=== PATIENT | female | born 1965 | race Caucasian/White ===

== ENCOUNTER 2018-05-22 02:47 | Inpatient (IN) | payer OTHER ==
[~2018-05-22] VITALS: Ht 147.3 cm; Wt 74.6 kg
[~2018-05-22 02:47] MED LIST: AVAPRO150 M1 PO; CELEBREX200 M1 PO; CLARITIN10 M1 PO; FLONASE ALLERG9.9 ML NASB; MULTI-VITAMIN1 EACH PO; PROAIR HFA8.5 GM INH; SYMBICORT 16010.2 GM INH; TRAMADOL HCL50 M1 PO; VYTORIN 10-201 EACH PO; XANAX0.25 M1 PO
--- NOTE | 2018-05-22 10:13 | Admission Core Measures ---
Acute Coronary Syndrome (CM) ACS Core Measures Acute Coronary Syndrome Diagnosis No Congestive Heart Failure (NEW) CHF Core Measures Congestive Heart Failure Diagnosis No Cerebrovascular Accident CVA Core Measures CVA/TIA Diagnosis No Venous Thromboembolism VTE Core Avila (View Protocol) VTE Risk Factors Surgery No Mechanical VTE Prophylaxis d/t N/A MechProphylax Ordered No VTE Pharm Prophylaxis d/t NA PharmProphylax ordered Problem List As ranked by this Provider includes Assessment & Plan 1. Unilateral primary osteoarthritis, left hip HOME MEDS Home Med List Albuterol Sulfate (Proair Hfa) 90 MCG HFA.AER.AD 2 PUF INH PRN ASTHMA ( Reported) Alprazolam (Xanax) 0.25 MG TABLET 1 TAB PO AD PRN ANXIETY (Reported) Budesonide/Formoterol Fumarate (Symbicort 160-4.5 Mcg Inhaler) 160 MCG-4.5 MCG/ ACTUATION HFA.AER.AD 2 PUF INH PRN ASTHMA (Reported) Celecoxib (Celebrex) 200 MG CAPSULE 1 CAP PO DAILY PAIN/INFLAMMATION ( Reported) Ezetimibe/Simvastatin (Vytorin 10-20 MG Tablet) 10 MG-20 MG TABLET 1 TAB PO DAILY CHOLESTEROL (Reported) Fluticasone Propionate (Flonase Allergy Relief) 50 MCG/ACTUATION SPRAY.SUSP 2 SPRAY NASB DAILY PRN ALLERGIES (Reported) Irbesartan (Avapro) 150 MG TABLET 1 TAB PO DAILY BP (Reported) Loratadine (Claritin) 10 MG TABLET 1 TAB PO DAILY ALLERGIES (Reported) Multivitamin (Multi-Vitamin Daily) 1 EACH TABLET 1 TAB PO DAILY SUPPLEMENT ( Reported) Tramadol HCl 50 MG TABLET 1 TAB PO PRN PAIN (Reported)
[2018-05-22] MEDS ORDERED: MIRALAX17 G1 PO (10:18)
[2018-05-22] MEDS ORDERED: ASPIRIN EC81 M1 PO (10:18)
[2018-05-22] MEDS ORDERED: PRILOSEC OTC20 M1 PO (10:18)
[2018-05-22] MEDS ORDERED: DILAUDID2 M1 PO (10:18)
[2018-05-22] MEDS ORDERED: COLACE100 M1 PO (10:18)
[2018-05-22 10:24] LABS: ABSOLUTE BASOPHIL COUNT 0 /CUMM (0.0-0.2); ABSOLUTE EOSINOPHIL COUNT 0 /CUMM (0.0-0.7); ABSOLUTE GRANULOCYTE CT 15.5 /CUMM (1.4-6.5); ABSOLUTE LYMPH COUNT 1.3 /CUMM (1.2-3.4); ABSOLUTE MONOCYTE COUNT 0.1 /CUMM (0.10-0.60); BASOPHIL % 0.3 % (0.0-2.0); EOSINOPHIL % 0.2 % (0-5); HEMATOCRIT 27.8 % (37-47); MEAN CORPUSCULAR HGB 21.9 PG (27.0-31.0); MEAN CORPUSCULAR VOLUME 68.6 FL (81.0-99.0); MEAN PLATELET VOLUME 8.2 FL (7.4-10.4); PLATELET COUNT 238 /CUMM (130-400); RBC DISTRIBUTION WIDTH 16.3 % (11.5-14.5); RED BLOOD CELL CT 4.05 /CUMM (4.20-5.40)
--- NOTE | 2018-05-22 10:24 | Patient Discharge Instructions ---
Discharge Instructions General Discharge Information You were seen/treated for: Left hip pain related to unilateral primary osteoarthritis You had these procedures: Left total hip replacement Watch for these problems: Increasing pain despite the use of pain medication Increasing redness, warmth or swelling Drainage of any type from incision Inability to bear weight on operative leg Persistent nausea and vomiting Fever greater than 101.5 degrees Do not soak the wound: Yes No bath, but you may shower: Yes Other wound care: Please keep wound clean and dry. No ointments or lotions of any type on or near incision at any time. No exceptions. Your dressing will be changed by your nurse on the second day after your surgery. Daily dry dressing changes are recommended each day thereafter. Do not soak your wound in a bath or pool at any time until otherwise indicated by your surgeon. You may shower, please dry wound immediately after shower with a clean towel. Special Instructions: Aspirin: You are taking this medication to help prevent blood clot formation. Please take with food to protect your stomach lining. Please take as directed. Constipation: Pain medication can cause constipation. Your surgeon has recommended that you take Colace and miralax each day. You may discontinue this medication if you develop loose stool or diarrhea. If you wish to continue this medication, it is available over the counter. If you are unable to move your bowels after several days, if you are unable to pass gas and are developing bloating, nausea, or vomiting as a result, please contact your doctor. Diet Continue normal diet: Yes Recommended Diet: Regular Activity Full Activity/No Limits: No Activity Self Limited: Yes Pounds, do NOT lift more than: 10 Acute Coronary Syndrome Inclusion Criteria At DC or during hospital stay patient has or had the following: ACS DIAGNOSIS No Discharge Core Measures Meds if any: Prescribed or Continued at Discharge Meds if any: NOT Prescribed or Continued at Discharge Congestive Heart Failure Inclusion Criteria At DC or during hospital stay patient has or had the following: CHF DIAGNOSIS No Discharge Core Measures Meds if any: Prescribed or Continued at Discharge Meds if any: NOT Prescribed or Continued at Discharge Cerebrovascular accident Inclusion Criteria At DC or during hospital stay patient has or had the following: CVA/TIA Diagnosis No Discharge Core Measures Meds if any: Prescribed or Continued at Discharge Meds if any: NOT Prescribed or Continued at Discharge Venous thromboembolism Inclusion Criteria VTE Diagnosis No VTE Type NONE VTE Confirmed by (Test) NONE Discharge Core Measures - Per Current guidelines, there needs to be overlap - treatment for the first 5 days of Warfarin therapy. - If discharged on Warfarin prior to 5 days of - overlap therapy, the patient will need to be - assessed for post discharge needs including - *Post discharge parental anticoagulation - *Warfarin and/or parental anticoagulation education - *Follow up date to check INR post discharge At least 5 days overlap therapy as Inpatient No Meds if any: Prescribed or Continued at Discharge Note: Overlap Therapy is Warfarin and Anticoagulant Meds if any: NOT Prescribed or Continued at Discharge
--- NOTE | 2018-05-22 10:26 | Surgical Discharge Summary ---
Visit Information Visit Dates Admission Date: 05/22/18 Discharge Date: 05/24/18 History of Present Illness Chief Complaint: Left hip pain related to unilateral primary osteoarthritis Medical History Isolation History: Standard Surgical History Pertinent Surgical History: non-contributory Review of Systems: See H&P Hospital Course Course Attending Physician: Jt Rutherford MD Primary Care Physician: Donal Laura MD Hospital Course: Patient was admitted to the hospital for an elective total joint replacement. The procedure was tolerated well and patient was transferred to a general surgical floor. Diet was advanced and tolerated. The patient was evaluated and treated by physical therapy. She experienced an acute blood loss anemia post operatively but remained asymptomatic and was given iron supplements. At the time of hospital discharge, the vital signs were stable, neurovascular status was intact, and pain was controlled with the use of oral pain medications. Allergies: Coded Allergies: Sulfa (Sulfonamide Antibiotics) (HIVES 05/12/18) Tetracyclines (HIVES 05/12/18) doxycycline (HIVES 05/12/18) latex (BREAK OUT, ITCHING 05/12/18) oxycodone (VOMIT 05/12/18) Disposition Summary Disposition Principal Diagnosis: Left hip unilateral primary osteoarthritis Additional Diagnosis: None Discharge Disposition: home health services Discharge Instructions General Discharge Information Code Status: Full Code Patient's Diet: Regular, advance as tolerated Patient's Activity: WBAT Follow-Up Instructions/Appts: Follow up with Dr. Rutherford in 6 weeks from date of surgery. Please call office to arrange &/or confirm this appointment. Medications at Discharge Discharge Medications: Stop taking the following medications: Tramadol HCl (Tramadol HCl) 50 MG TABLET ORAL as needed for PAIN Celecoxib (Celebrex) 200 MG CAPSULE ORAL DAILY Continue taking these medications: Ezetimibe/Simvastatin (Vytorin 10-20 MG Tablet) 10 MG-20 MG TABLET 1 Tablet ORAL DAILY Comments: Last Taken:05/23/18 Time:8:50A.M 4:33P.M Irbesartan (Avapro) 150 MG TABLET 1 Tablet ORAL DAILY Comments: NOT GIVEN THIS ADMISSION Albuterol Sulfate (Proair Hfa) 90 MCG HFA.AER.AD 2 Puff Inhale through mouth as needed for ASTHMA Comments: NOT GIVEN THIS ADMISSION Alprazolam (Xanax) 0.25 MG TABLET 1 Tablet ORAL As Directed as needed for ANXIETY Comments: NOT GIVEN THIS ADMISSION Budesonide/Formoterol Fumarate (Symbicort 160-4.5 Mcg Inhaler) 160 MCG-4.5 MCG/ ACTUATION HFA.AER.AD 2 Puff Inhale through mouth as needed for ASTHMA Comments: Last Taken:05/24/18 Time:8:43A.M Multivitamin (Multi-Vitamin Daily) 1 EACH TABLET 1 Tablet ORAL DAILY Comments: Last Taken:05/24/18 Time:8:40A.M Loratadine (Claritin) 10 MG TABLET 1 Tablet ORAL DAILY Comments: NOT GIVEN THIS ADMISSION Fluticasone Propionate (Flonase Allergy Relief) 50 MCG/ACTUATION SPRAY.SUSP 2 Vadito Both sides of nose DAILY as needed for ALLERGIES Comments: Last Taken:05/24/18 Time:8:43A.M Start taking the following new medications: Aspirin (Ecotrin*) 81 MG TABLET.DR 1 Tablet ORAL TWICE DAILY Qty = 60 No Refills Comments: Last Taken:05/24/18 Time:8;40A.M Docusate Sodium (Colace) 100 MG CAPSULE 1 Capsule ORAL TWICE DAILY Qty = 14 No Refills Instructions: DISCONTINUE USE IF YOU DEVELOP LOOSE STOOL OR DIARRHEA Comments: Last Taken:05/24/18 Time:8:41A.M Polyethylene Glycol 3350 (Miralax) 17 GRAM POWD.PACK 1 Packet ORAL DAILY Qty = 7 No Refills Instructions: dissolve in water, DISCONTINUE USE IF YOU DEVELOP LOOSE STOOL OR DIARRHEA Comments: Last Taken:05/24/18 Time:8:42A.M Omeprazole Magnesium (Prilosec Otc) 20 MG TABLET.DR 1 Tablet ORAL DAILY Qty = 30 No Refills Comments: Last Taken:05/24/18 Time:5:55A.M Tramadol HCl (Tramadol HCl) 50 MG TABLET 1 Tablet ORAL EVERY 4-6 HOURS as needed for PAIN Qty = 18 No Refills Comments: Last Taken:05/24/18 Time:8:42A.M
[2018-05-22 10:34] LABS: GRANULOCYTE % 91.4 % (42.2-75.2)
--- NOTE | 2018-05-22 10:59 | RADIOLOGY REPORT ---
EXAMINATION: XR HIP, LEFT CLINICAL INFORMATION: Status post left total hip arthroplasty. COMPARISON: None TECHNIQUE: Two views of the left hip. FINDINGS: On the AP radiograph, the pubic rami are excluded the [id number] and, on the lateral radiograph, the acetabulum is excluded from the [id number]. Recommend follow-up/repeat radiographs. The noncemented components of the total hip arthroplasty exhibit normal position and alignment. No acute periprosthetic fractures are seen. Postoperative drainage tube is noted. IMPRESSION: The suboptimal radiographs show satisfactory position and alignment of the components of the hip arthroplasty.
[2018-05-22 12:00] VITALS: BP 102/72
--- NOTE | 2018-05-22 14:24 | PN- Orthopedic ---
Subjective Subjective: Patient nauseous and vomited 1 after receiving p.o. Dilaudid. She states that she has an intolerance to opiates with a history of nausea and vomiting after Percocet. She has tolerated tramadol in the past. She is feeling slightly lightheaded and dizzy after ambulating with physical therapy Objective Vital Signs and I&Os Vital Signs Date Time Temp Pulse Resp B/P B/P Pulse O2 O2 Flow FiO2 Mean Ox Delivery Rate 05/22 1339 99 Nasal 1.0L Cannula 05/22 1200 98.6 74 18 102/72 99 Nasal 1.0L Cannula Intake & Output 05/22 1600 05/22 0800 05/22 0000 05/21 1600 05/21 0800 05/21 0000 Intake Total 650 Output Total 550 Balance 100 Intake, IV 150 Intake, Oral 500 Output, 150 Emesis Output, Urine 400 Patient 155 lb Weight Weight Bed scale Measurement Method Physical Exam: Well-developed well-nourished no apparent distress. HEENT: Atraumatic, extraocular motion intact Neck: Supple, no lymphadenopathy Respiratory: No respiratory distress Extremities: No edema Left lower extremity hip dressing in place, Dressing clean dry and intact. Hemovac noted, holding self suction, small amount of dried bloody drainage noted in Hemovac drain Mild thigh swelling No signs of infection. No shortening or rotation Hip range of motion is limited and without unexpected pain Neurovascularly intact distally Bilateral calves are supple, nontender. Neuro: Alert and oriented x3 Psych: Mood affect normal, normal memory normal judgment. Skin: Warm and dry, no rash on exposed skin Assessment/Plan Assessment/Plan Postop day #0 status post left total hip arthroplasty anterior approach Perioperative antibiotics. Pain medication as needed. Will switch from Dilaudid to tramadol due to intolerance to opiates, titrate to effectiveness, add Vistaril (anesthesia adjunct/aide in nausea), add Toradol Out of bed Physical therapy, weightbearing as tolerated IV fluids Continue Hemovac drain to self suction, record output q shift Regular diet GI prophylaxsis Follow a.m. labs, monitor for acute blood loss anemia Aspirin for DVT prophylaxis ALPS for DVT prophylaxis Regular home meds Dressing change postop day 2 Disposition: Plan for discharge to home tomorrow with [facility]NA services Core Measures Venous Thromboembolism VTE Risk Factors Surgery No Mechanical VTE Prophylaxis d/t N/A MechProphylax Ordered No VTE Pharm Prophylaxis d/t NA PharmProphylax ordered
--- NOTE | 2018-05-22 14:59 | Operative Report ---
Operative/Inv Procedure Report Surgery Date: 05/22/18 Name of Procedure: Left total hip replacement Pre-Operative Diagnosis: Primary left hip DJD Post-Operative Diagnosis: Same Estimated Blood Loss: 650 Surgeon/Washhouse Hand: Jt Rutherford MD Anesthesia: block Operative/Procedure Note Note: Description of Procedure: The patient was taken to the operating room and positively identified. After induction of spinal anesthesia and administration of appropriate pre-operative antibiotics, the patient was positioned supine on the operating room table and all bony prominences were well padded. After performing a surgical timeout, the left lower extremity was prepped and draped in the usual sterile fashion. A direct anterior approach was made to the left hip. The incision was carried sharply through superficial soft tissues to the level of the fascia. Meticulous hemostasis was maintained with Bovie electocautery. The fascia over the tensor fascia cristi muscle was opened sharply and the interval between the TFL and the sartorius was entered bluntly taking care to stay lateral to the lateral femoral cutaneous nerve. Retractors were placed around the femoral neck and the pericapsular fat was identified. The ascending branches of the lateral femoral circumflex vessels were identified and carefully coagulated. The pericapsular fat and anterior capsule were then resected. A napkin ring osteotomy was performed and the femoral head was removed without difficulty. Attention was then turned to the acetabulum. After appropriate placement of retractors, the acetabulum was exposed. Soft tissue was cleaned from the acetabular margin and notch. Overhanging osteophytes were removed and the teardrop was exposed. The acetabulum was then sequentially reamed to accept a 48 mm Omar hemispherical acetabular shell. This was impacted into place in the appropriate position and fitted with a 32 mm Trident X3 zero degree polyethylene insert. Attention was then turned to the femur. After performing the appropriate ligament releases, the proximal femur was exposed. It was then sequentially broached to accept a size 3 Lavinia Anato neutral stem. This was trialed for leg length and stability. The trial component was removed and the final component was impacted into place. The trunnion was carefully cleaned and fit with a 32 mm, +4 Biolox delta ceramic femoral head. The hip was reduced and put through a full range of motion and found to be stable. The articular space was then irrigated with sterile saline. The periarticular soft tissues were infilitrated with Marcaine. The fascial layer was closed with interrupted #1 vicryl suture and the skin was re-approximated with interrupted 2 -0 vicryl. The skin was closed with a running 3-0 V-Lock suture. Steri-strips and a sterile dressing were applied. The patient was awakened and taken to the recovery room in satisfactory condition.
[2018-05-22 15:04] VITALS: BP 116/72
[2018-05-22 16:00] VITALS: BP 110/72
[2018-05-22 18:00] VITALS: BP 104/74
[2018-05-22 21:58] VITALS: BP 120/80
[2018-05-23] VITALS (7 sets, daily range): BP systolic 100–120; BP diastolic 60–84
[2018-05-23 08:14] LABS: ABSOLUTE BASOPHIL COUNT 0 /CUMM (0.0-0.2); ABSOLUTE EOSINOPHIL COUNT 0 /CUMM (0.0-0.7); ABSOLUTE GRANULOCYTE CT 9.9 /CUMM (1.4-6.5); ABSOLUTE LYMPH COUNT 1.2 /CUMM (1.2-3.4); EOSINOPHIL % 0 % (0-5); RED BLOOD CELL CT 3.08 /CUMM (4.20-5.40); WHITE BLOOD CELL COUNT 11.9 /CUMM (4.8-10.8)
--- NOTE | 2018-05-23 08:16 | PN- Orthopedic ---
Subjective Subjective: No acute overnight events reported. Had some ponv which is resolving, only c/o small amout of residual nausea. Has been oob ambulating with PT. No c/o dizziness or lightheadedness when ambulating. Denies chest pain, shortness of breath and difficulty breathing. Pain is undercontrol without the use of narcotics-per patient requests. Objective Vital Signs and I&Os Vital Signs Date Time Temp Pulse Resp B/P B/P Pulse O2 O2 Flow FiO2 Mean Ox Delivery Rate 05/23 0550 98.0 83 20 120/78 98 Room Air 05/23 0138 98.4 84 20 108/62 95 Room Air 05/22 2158 98.0 74 20 120/80 95 Room Air 05/22 1800 98.5 95 20 104/74 95 Room Air 05/22 1600 97.8 84 20 110/72 95 Room Air 05/22 1504 97.9 88 16 116/72 96 05/22 1339 99 Nasal 1.0L Cannula 05/22 1200 98.6 74 18 102/72 99 Nasal 1.0L Cannula Intake & Output 05/23 1600 05/23 0800 05/23 0000 05/22 1600 05/22 0800 05/22 0000 Intake Total 400 650 Output Total 40 100 600 Balance -40 300 50 Intake, IV 400 150 Intake, Oral 500 Output, 40 100 50 Drainage Output, 150 Emesis Output, Urine 400 Patient 176 lb 155 lb Weight Weight Bed scale Measurement Method Physical Exam: General: Alert and oriented x3, no acute distress Cardiac: RRR, s12 Pulm: CTA bilaterally, non-labored respiratory effort, on room air Abd: Non-tender, non-distended Extremities: Moves all extremities, distal sensations grossly intact. Skin warm and well perfused. DP pulses palpable bilaterally. Bilateral calves soft and nontender. Surgical site dressing dry and intact. Thigh compartment soft. Hemovac holding suction, sanguinous output. Assessment/Plan Assessment/Plan This is a 52 year old female, POD 1, s/p L THR. Post op ebl estimated to be 650 cc. Asymptomatic. -Follow up cbc this am -DC dilaudid/add tramadol for pain control -OOB, wbat -ASA 81b Labs reviewed: Acute blood loss anemia, pt asymptomatic, will start iron supplement, will continue to assess clinical status. Will discuss with Dr. Rutherford Core Measures Venous Thromboembolism VTE Risk Factors Surgery No Mechanical VTE Prophylaxis d/t N/A MechProphylax Ordered No VTE Pharm Prophylaxis d/t NA PharmProphylax ordered
[2018-05-23 08:59] LABS: ABSOLUTE MONOCYTE COUNT 0.8 /CUMM (0.10-0.60); BASOPHIL % 0.1 % (0.0-2.0); MEAN CORPUSCULAR HGB 21.9 PG (27.0-31.0); MEAN CORPUSCULAR HGB CONC 31.5 G/DL (33.0-37.0); MEAN CORPUSCULAR VOLUME 69.4 FL (81.0-99.0); MEAN PLATELET VOLUME 8.6 FL (7.4-10.4); PLATELET COUNT 197 /CUMM (130-400); RBC DISTRIBUTION WIDTH 15.7 % (11.5-14.5)
[2018-05-23] MEDS ORDERED: TRAMADOL HCL50 M1 PO (09:00)
[2018-05-23 09:37] LABS: HEMATOCRIT 21.4 % (37-47)
[2018-05-23 09:56] LABS: GRANULOCYTE % 83.2 % (42.2-75.2)
[2018-05-24 06:30] VITALS: BP 100/58
--- NOTE | 2018-05-24 08:43 | PN- Orthopedic ---
Subjective Subjective: pod#2 s/p left christina no major issues overnight deneis cp, sob, no n+v with diet no dizziness with ambulation Objective Vital Signs and I&Os Vital Signs Date Time Temp Pulse Resp B/P B/P Pulse O2 O2 Flow FiO2 Mean Ox Delivery Rate / 0630 98.5 82 16 100/58 97 Room Air 05/23 2211 98.5 95 18 118/72 98 / 1800 98.4 82 16 102/84 / 1600 98.5 78 16 110/80 / 1421 97.5 97 20 100/60 97 Room Air / 1200 98.6 80 16 112/78 / 0843 98.0 83 20 120/78 Intake & Output 05/24 1600 05/24 0800 05/24 0000 / 1600 05/23 0800 05/23 0000 Intake Total 860 400 Output Total 40 100 Balance 860 -40 300 Intake, IV 400 Intake, Oral 860 Number 0 Bowel Movements Output, 40 100 Drainage Patient 164 lb 176 lb Weight Weight Bed scale Measurement Method Physical Exam: cv: rrr lungs: clear abd: soft, +bs ext: drsg changed wound c/d/i thigh soft distal cms intact Assessment/Plan Assessment/Plan ortho stable plan f/u am labs, if ok d/c home today Core Measures Venous Thromboembolism VTE Risk Factors Surgery No Mechanical VTE Prophylaxis d/t N/A MechProphylax Ordered No VTE Pharm Prophylaxis d/t NA PharmProphylax ordered
[2018-05-24 08:49] VITALS: BP 100/58
[2018-05-24 09:01] LABS: ABSOLUTE BASOPHIL COUNT 0 /CUMM (0.0-0.2); ABSOLUTE EOSINOPHIL COUNT 0.1 /CUMM (0.0-0.7); ABSOLUTE LYMPH COUNT 2.5 /CUMM (1.2-3.4); BASOPHIL % 0.2 % (0.0-2.0); HEMATOCRIT 20.6 % (37-47); MEAN PLATELET VOLUME 8.3 FL (7.4-10.4)
[2018-05-24 09:07] LABS: ABSOLUTE GRANULOCYTE CT 5.6 /CUMM (1.4-6.5); ABSOLUTE MONOCYTE COUNT 0.7 /CUMM (0.10-0.60); EOSINOPHIL % 1.4 % (0-5); GRANULOCYTE % 62.4 % (42.2-75.2); MEAN CORPUSCULAR HGB 21.7 PG (27.0-31.0); MEAN CORPUSCULAR HGB CONC 31.9 G/DL (33.0-37.0); MEAN CORPUSCULAR VOLUME 68.1 FL (81.0-99.0); PLATELET COUNT 204 /CUMM (130-400); RBC DISTRIBUTION WIDTH 16.4 % (11.5-14.5); RED BLOOD CELL CT 3.02 /CUMM (4.20-5.40)
[2018-05-24] MEDS ORDERED: FEOSOL325 MG PO (09:32)
== END 2018-05-24 12:33 | disposition home health service (06) | DRG 470 ==
LOC: SDA 02:47 → 2NA 02:47 → ENRESERV 10:24 → ENTRNSPT 11:22 → EDTRNSPT 11:27 → EDTRNSPTSTS 11:27 → 2NA 11:38 → CMPTRNSPT 11:46 → ENPENDDIS 05-24 09:58 → ENTRNSPT 05-24 12:25 → 2NA 05-24 12:33 → EDTRNSPTSTS 05-24 12:44 → EDTRNSPT 05-24 12:44 → CMPTRNSPT 05-24 12:53
PROVIDERS: Nurse Practitioner
PROC: 0SRB04A Replacement of Left Hip Joint with Ceramic on Polyethylene Synthetic Substitute, Uncemented, Open Approach (ICD-10-PCS; principal; 2018-05-23)
DX: M16.12 Unilateral primary osteoarthritis, left hip (principal); J45.909 Unspecified asthma, uncomplicated; Z88.5 Allergy status to narcotic agent; Z88.1 Allergy status to other antibiotic agents; Z91.040 Latex allergy status; Z79.51 Long term (current) use of inhaled steroids
CPT/HCPCS: 2NAP; 36415; 36592; 73502-LT; 82436; 97110-GO; 97116-GO; 97161-GP; 97530-GO; J0131; J0690; J0735; J1630; J1885; J2405; J2550; J3490; J7042